=== PATIENT | male | born 1980 | race American Indian/Alaskan Native ===

== ENCOUNTER 2017-02-04 11:42 | Emergency (ER) | payer SELFPAY ==
[2017-02-04 12:19] VITALS: BP 128/72
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
== END 2017-02-04 14:48 | disposition home or self-care (01) ==
LOC: ED 11:42
DX: S00.211A Abrasion of right eyelid and periocular area, initial encounter (principal); Y08.89XA Assault by other specified means, initial encounter; Y93.89 Activity, other specified; Y92.89 Other specified places as the place of occurrence of the external cause; Y99.8 Other external cause status
CPT/HCPCS: 99282

== ENCOUNTER 2021-03-09 09:40 | Emergency (ER) | payer SELFPAY ==
[2021-03-09 09:52] VITALS: BP 113/67
--- NOTE | 2021-03-09 10:20 | Emergency Department Report ---
Minor Respiratory - HPI Chief Complaint: Upper Respiratory Infection Stated Complaint: COVID SYMPTOMS Time Seen by Provider: 03/09/21 09:59 Duration: 1 Day Severity: mild Minor Respiratory: Yes Rhinorrhea, No Sore Throat, No Able to Tolerate Fluids, No Ear Pain, No Cough, No Sick Contacts, No Hemoptysis, No Chest Pain, No Shortness of Breath, No Fever Other History: 41-year-old male who has no significant past medical history presents to the ER today requesting medication for COVID-19. Patient was diagnosed with COVID-19 yesterday. He states that the main reason he took the test was because he was scheduled to travel tomorrow. He states that he is having some mild rhinorrhea but otherwise not having any other symptoms including no fever or chills or any other symptoms. He states that he did get COVID-19 vaccine last year and recently got the vaccine booster the beginning of February. ED Review of Systems ROS: Stated complaint: COVID SYMPTOMS Other details as noted in HPI Comment: All other systems reviewed and negative ENT: other (Rhinorrhea) Respiratory: denies: cough, shortness of breath, SOB with exertion, SOB at rest, wheezing Cardiovascular: denies: chest pain, palpitations, dyspnea on exertion, edema, s yncope, paroxysmal nocturnal dyspnea Endocrine: no symptoms reported Gastrointestinal: denies: abdominal pain, nausea, diarrhea Genitourinary: denies: urgency, dysuria, frequency, hematuria, discharge, testicular pain, testicular mass Musculoskeletal: denies: back pain, joint swelling, arthralgia Skin: denies: rash, lesions, change in color, change in hair/nails, pruritus Neurological: denies: headache, weakness, paresthesias Psychiatric: denies: anxiety, depression ED Past Medical Hx - Past Medical History Previous Medical History?: No - Surgical History Past Surgical History?: No - Social History Smoking Status: Never Smoker Substance Use Type: None - Medications Home Medications: Home Medications Medication Instructions Recorded Confirmed Last Taken Type Ibuprofen [Motrin] 600 mg PO Q8H PRN 4 Days #12 tablet 02/04/17 Unknown Rx Minor Respiratory Exam - Exam General: Vital signs noted. No distress. Alert and acting appropriately. HEENT: Yes Moist Mucous Membranes, No Pharyngeal Erythema, No Pharyngeal Exudates, No Rhinorrhea, No Conjuctival Injection, No Frontal Tenderness, No Maxillary Tenderness Neck: Yes Supple, No Adenopathy Lungs: Yes Good Air Exchange, No Wheezes, No Ronchi, No Stridor, No Cough, No Labored Respirations, No Retractions, No Use of Accessory Muscles, No Other Abnormal Lung Sounds Heart: Yes Regular, No Murmur Abdomen: No Tenderness, No Peritoneal Signs Skin: No Rash, No Edema Neurologic: Alert and oriented, no deficits. Musculoskeletal: Unremarkable. ED Course Vital Signs 03/09/21 09:50 Temperature 98.6 F Pulse Rate 61 Respiratory 16 Rate Blood Pressure 113/67 [Left] O2 Sat by Pulse 99 Oximetry ED Medical Decision Making - Medical Decision Making 41-year-old male who has no significant past medical history presents to the ER today requesting medication for COVID-19. Patient was diagnosed with COVID-19 yesterday. He states that the main reason he took the test was because he was scheduled to travel tomorrow. He states that he is having some mild rhinorrhea but otherwise not having any other symptoms including no fever or chills or any other symptoms. He states that he did get COVID-19 vaccine last year and recently got the vaccine booster the beginning of February. 1031: Patient is well-appearing, nontoxic and not in any significant distress. He appears well-hydrated. His vital signs are stable. He has no meningeal signs on exam. Chest clear to auscultation. Abdomen soft and nontender. He is neurologically intact with a normal gait. His vital signs are completely normal. Discussed with patient that there is no specific medication to treat COVID-19. Informed that it is a virus and has to run its course. He will need to quarantine for 5 days, and he can take medication to help if he has symptoms and recommend that he drinks lots of fluids. At this time there is no indication for any work-up. Patient expressed understanding of all instructions and agree with plan. Patient stable at time of discharge Critical care attestation.: If time is entered above; I have spent that time in minutes in the direct care of this critically ill patient, excluding procedure time. ED Disposition Clinical Impression: COVID-19 virus infection Disposition: HOME / SELF CARE / HOMELESS Is pt being admited?: No Does the pt Need Aspirin: No Condition: Stable Instructions: COVID-19: How to Protect Yourself and Others - CDC, Prevent the Spread of COVID-19 if You Are Sick - [facility] Additional Instructions: You will need to quarantine at home for the next 5 days. In the meantime you will need to drink lots of fluids, and if you develop any symptoms you can take [id number] cough cold medication including Mucinex, Robitussin, Zyrtec, Claritin, Diann. You can take Tylenol and or ibuprofen if you develop any pain, or fever. Lots of rest. Protect your family and others by wearing a mask. Follow-up with your primary care doctor. Return to the ER if your symptoms worsens in any way. Referrals: PRIMARY CARE, [Referring] - 3-5 Days Time of Disposition: 10:23
== END 2021-03-09 10:58 | disposition home or self-care (01) ==
LOC: ED 09:40
DX: U07.1 COVID-19 (principal)
CPT/HCPCS: 99282